=== PATIENT | female | born 1990 | race Caucasian/White ===

== ENCOUNTER 2016-11-22 15:46 | Emergency (ER) | payer OTHER ==
[~2016-11-22] VITALS: Ht 160 cm; Wt 65.0 kg
[~2016-11-22 15:46] MED LIST: CIPR500T4 PO; FIORCAP6 PO; Z.0.NO CURRENT MEDS
[2016-11-22 15:47] VITALS: BP 123/63; PULSE 72; RESP 16; TEMP 98.2; O2SAT 100
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
[2016-11-22] MEDS ORDERED: TETANUS/DIPHTHERIA TOXOID ADULT 0.5 ML VIAL IM ONE (16:15)
[2016-11-22] MEDS ORDERED: SILVER SULFADIAZINE 1% CR 50 GM JAR TOPICAL ONE (16:15)
[2016-11-22] MEDS ORDERED: CEPHALEXIN MONOHYDRATE 500 MG CAP PO ONE (16:15)
[2016-11-22] MEDS ORDERED: IBUPROFEN 600 MG TAB PO ONE (16:15)
[2016-11-22] MEDS ORDERED: IBUP-232 PO (16:27)
[2016-11-22] MEDS ORDERED: SILV1CRE20 TOPICAL (16:27)
[2016-11-22] MEDS ORDERED: CEPH500C PO (16:27)
== END 2016-11-22 16:45 | disposition home or self-care (01) ==
LOC: NEPK 15:46
DX: T23.241A Burn of second degree of multiple right fingers (nail), including thumb, initial encounter (principal); T23.232A Burn of second degree of multiple left fingers (nail), not including thumb, initial encounter; X10.2XXA Contact with fats and cooking oils, initial encounter; Y99.0 Civilian activity done for income or pay; Z23 Encounter for immunization
CPT/HCPCS: 16000; 90471; 90714

== ENCOUNTER 2016-11-23 15:09 | Emergency (ER) | payer OTHER ==
[~2016-11-23] VITALS: Ht 160 cm; Wt 64.0 kg
[~2016-11-23 15:09] MED LIST changes: +CEPH500C PO; -CIPR500T4 PO; -FIORCAP6 PO; +IBUP-232 PO; +SILV1CRE20 TOPICAL; -Z.0.NO CURRENT MEDS
[2016-11-23 15:13] VITALS: BP 115/61; PULSE 62; RESP 15; TEMP 97.9; O2SAT 99
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
[2016-11-23] MEDS ORDERED: SILVER SULFADIAZINE 1% CR 50 GM JAR TOPICAL ONE (19:30)
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
== END 2016-11-23 20:03 | disposition home or self-care (01) ==
LOC: NEPK 15:09
DX: T23.202D Burn of second degree of left hand, unspecified site, subsequent encounter (principal); X08.8XXD Exposure to other specified smoke, fire and flames, subsequent encounter
CPT/HCPCS: 16020

== ENCOUNTER 2016-11-30 12:02 | Emergency (ER) | payer OTHER ==
[~2016-11-30] VITALS: Ht 162.6 cm; Wt 65.0 kg
[2016-11-30 12:04] VITALS: BP 126/65; PULSE 68; RESP 20; TEMP 98; O2SAT 100
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
== END 2016-11-30 12:30 | disposition home or self-care (01) ==
LOC: NEPK 12:02
DX: R20.0 Anesthesia of skin (principal)
CPT/HCPCS: 99281